=== PATIENT | male | born 1970 | race African-American/Black ===

== ENCOUNTER 2016-06-28 23:16 | Emergency (ER) | payer OTHER ==
[~2016-06-28] VITALS: Ht 170.2 cm; Wt 63.5 kg
[2016-06-28 23:16] VITALS: BP_SYST 135
[2016-06-28 23:55] VITALS: BP_SYST 132
== END 2016-06-28 23:55 ==
LOC: SED 23:16
DX: Z02.83 Encounter for blood-alcohol and blood-drug test (principal); L97.919 Non-pressure chronic ulcer of unspecified part of right lower leg with unspecified severity; R03.0 Elevated blood-pressure reading, without diagnosis of hypertension; V89.2XXA Person injured in unspecified motor-vehicle accident, traffic, initial encounter; Y93.89 Activity, other specified; Y99.8 Other external cause status; Y92.89 Other specified places as the place of occurrence of the external cause
CPT/HCPCS: 99283